=== PATIENT | female | born 1985 | race Caucasian/White ===

== ENCOUNTER 2020-12-11 16:23 | Emergency (ER) | payer OTHER ==
[~2020-12-11 16:23] MED LIST: OMEPRAZOLE40 MG PO; PNV PRENATAL P1 EACH PO
[2020-12-11 17:28] LABS: HEMOGLOBIN 16.5 gm/dl (12.3-15.3); RED BLOOD COUNT 5.65 M/UL (4.00-5.10); WHITE BLOOD COUNT 7.1 K/UL (4.5-11.0)
[2020-12-11 17:46] LABS: BUN/CREATININE RATIO 25 (0-10)
[2020-12-11] MEDS ORDERED: PROTONIX40 MG PO (19:40)
[2020-12-11] MEDS ORDERED: ONDANSETRON ODT4 MG SL (19:40)
[2021-01-07] MEDS ORDERED: TYLENOL325 M1 PO (14:21)
== END 2020-12-11 19:50 | disposition home or self-care (01) ==
LOC: ER1 16:23
PROVIDERS: Nurse Practitioner
DX: R10.11 Right upper quadrant pain (principal); R10.13 Epigastric pain; R19.7 Diarrhea, unspecified; F17.210 Nicotine dependence, cigarettes, uncomplicated; Z90.89 Acquired absence of other organs
CPT/HCPCS: 80053; 81001; 83605; 83690; 84703; 85025; 86140; 99284; Q9967

== ENCOUNTER → 2020-12-18 | Outpatient (CLI) | payer OTHER ==
[~2020-12-18] MED LIST changes: +ONDANSETRON ODT4 MG SL; +PROTONIX40 MG PO; +TYLENOL325 M1 PO
== END ==
LOC: US 09:14
DX: R10.11 Right upper quadrant pain (principal); K80.20 Calculus of gallbladder without cholecystitis without obstruction; K82.8 Other specified diseases of gallbladder
CPT/HCPCS: 76705

== ENCOUNTER → 2021-01-07 | Day surgery (SDC) | payer OTHER ==
[~2021-01-07] VITALS: Ht 162.6 cm; Wt 68.0 kg
== END | disposition home or self-care (01) ==
LOC: OR 07:16
DX: C16.0 Malignant neoplasm of cardia (principal); Z88.0 Allergy status to penicillin; E78.5 Hyperlipidemia, unspecified; I10 Essential (primary) hypertension; F17.220 Nicotine dependence, chewing tobacco, uncomplicated; K52.9 Noninfective gastroenteritis and colitis, unspecified
CPT/HCPCS: 84703; J0690; J1100; J1170; J2001; J2250; J2405; J2704; J2710; J3010; J7030; J7120